=== PATIENT | male | born 1975 | race Caucasian/White ===

== ENCOUNTER 2018-08-17 14:02 | Emergency (ER) | payer OTHER ==
[~2018-08-17] VITALS: Ht 170.2 cm; Wt 87.3 kg
--- NOTE | 2018-08-17 14:30 | NUR ---
PT TO ROOM FROM LOBBY AT TIS TIME.
[2018-08-17] MEDS ORDERED: ONDANSETRON 2MG/ML, 2ML IVPush ONE (15:00)
[2018-08-17] MEDS ORDERED: MORPHINE SULFATE 4 MG/ML, 1ML IVPush PRN (15:00)
[2018-08-17] MEDS ORDERED: ONDANSETRON 2MG/ML, 2ML ONE (15:03)
[2018-08-17] MEDS ORDERED: MORPHINE SULFATE 4 MG/ML, 1ML ONE (15:03)
--- NOTE | 2018-08-17 15:10 | NUR ---
US TO THE BS MEDS GIVEN PER ORDERS FAMILY AT THE BS
[2018-08-17 15:13] LABS: BASOPHILS # (AUTO) 0.04 x10^3/uL (0-0.1); BASOPHILS % (AUTO) 1 % (0-1); EOSINOPHILS # (AUTO) 0.05 x10^3/uL (0-0.4); EOSINOPHILS % (AUTO) 1 % (1-7); LYMPHOCYTES # (AUTO) 1.59 x10^3/uL (1-3.4); LYMPHOCYTES % (AUTO) 18 % (22-44); MD NO; MEAN CORPUSCULAR HEMOGLOBIN 29.6 pg (27.5-34.5); MEAN CORPUSCULAR HGB CONC 33.6 g/dL (33.2-36.2); MEAN CORPUSCULAR VOLUME 88.2 fL (81-97); MEAN PLATELET VOLUME 9.7 fL (7.4-10.4); MONOCYTES # (AUTO) 0.72 x10^3/uL (0.2-0.8); MONOCYTES % (AUTO) 8 % (2-9); NEUTROPHILS # (AUTO) 6.54 x10^3/uL (1.8-6.8); NEUTROPHILS % (AUTO) 73 % (42-75); PLATELET COUNT 229 x10^3/uL (130-400); RED BLOOD COUNT 5.11 x10^6/uL (4.38-5.82); RED CELL DISTRIBUTION WIDTH 14.7 % (9.4-14.8)
[2018-08-17 15:20] LABS: ALANINE AMINOTRANSFERASE 59 U/L (12-78); ALBUMIN 3.8 g/dL (3.4-5.0); ANION GAP 5 mmol/L (5-15); CALCIUM 9.2 mg/dL (8.5-10.1); CHLORIDE 108 mmol/L (98-107)
[2018-08-17 15:23] LABS: ALKALINE PHOSPHATASE 89 U/L (45-117); BILIRUBIN,TOTAL 0.3 mg/dL (0.2-1.0); TOTAL PROTEIN 7.2 g/dL (6.4-8.2)
--- NOTE | 2018-08-17 15:43 | NUR ---
PT. STATES RELIEF FROM PAIN MEDICATIONS. PT. IS RESTING WITH THE BP CUFF AND THE PULSE OX IN PLACE. VSS.
--- NOTE | 2018-08-17 16:49 | NUR ---
PT. WAS GIVEN DISCHARGE INSTRUCTIONS AND SCRIPTS WITH UNDERSTANDING VERBALIZED ALONG WITH WILLINGNESS TO COMPLY. PT.'S IV WAS DCD', CATH TIP INTACT. PRESSURE HELD WITH HEMOSTASIS ACHIEVED. PT. WAS AMBULATORY TO THE DISCHARGE DESK. PT. WAS INSTRUCTED TO NOT DRIVE WHILE TAKING NORCO OR ANY NARCOTIC PAIN MEDS.
[2018-08-17 16:52] VITALS: BP 115/72
== END 2018-08-17 16:55 | disposition home or self-care (01) ==
LOC: ED 16:30
DX: K80.20 Calculus of gallbladder without cholecystitis without obstruction (principal)
CPT/HCPCS: 36415; 76700; 80053; 83690; 85025; 96374; 96375; 99284; J2405

== ENCOUNTER 2019-07-17 19:16 | Observation (INO) | payer OTHER ==
[~2019-07-17] VITALS: Ht 170.2 cm; Wt 98.0 kg
[2019-07-17 23:15] LABS: BASOPHILS # (AUTO) 0.03 x10^3/uL (0-0.1); BASOPHILS % (AUTO) 0 % (0-1); EOSINOPHILS # (AUTO) 0.39 x10^3/uL (0-0.4); EOSINOPHILS % (AUTO) 4 % (1-7); LYMPHOCYTES # (AUTO) 2.19 x10^3/uL (1-3.4); LYMPHOCYTES % (AUTO) 21 % (22-44); MD NO; MEAN CORPUSCULAR HEMOGLOBIN 30.4 pg (27.5-34.5); MEAN CORPUSCULAR HGB CONC 33.8 g/dL (33.2-36.2); MEAN PLATELET VOLUME 8.3 fL (7.4-10.4); MONOCYTES # (AUTO) 0.98 x10^3/uL (0.2-0.8); MONOCYTES % (AUTO) 9 % (2-9); NEUTROPHILS # (AUTO) 6.86 x10^3/uL (1.8-6.8); NEUTROPHILS % (AUTO) 66 % (42-75); PLATELET COUNT 289 x10^3/uL (130-400); RED BLOOD COUNT 4.41 x10^6/uL (4.38-5.82); RED CELL DISTRIBUTION WIDTH 13.8 % (9.4-14.8)
[2019-07-17 23:25] LABS: ALANINE AMINOTRANSFERASE 153 U/L (12-78); ALBUMIN 3.1 g/dL (3.4-5.0); ANION GAP 5 mmol/L (5-15); CALCIUM 9.2 mg/dL (8.5-10.1); CHLORIDE 103 mmol/L (98-107)
[2019-07-17 23:28] LABS: ALKALINE PHOSPHATASE 109 U/L (45-117); BILIRUBIN,TOTAL 0.5 mg/dL (0.2-1.0); CREATININE 1.03 mg/dL (0.7-1.3); TOTAL PROTEIN 8.1 g/dL (6.4-8.2)
[2019-07-18] MEDS ORDERED: SODIUM CHLORIDE 0.9% 1,000 ML IV ONE (00:20)
--- NOTE | 2019-07-18 00:20 | NUR ---
pt to room from lobby
[2019-07-18] MEDS ORDERED: BUPIVACAINE/PF 0.5% ONE (00:26)
[2019-07-18] MEDS ORDERED: EPINEPHRINE 1 MG/ML, 1ML ONE (00:26)
[2019-07-18 00:28] LABS: MICROSCOPIC NOT IND
[2019-07-18] MEDS ORDERED: MORPHINE SULFATE 4 MG/ML, 1ML ONE (00:28)
[2019-07-18] MEDS ORDERED: CEFOTETAN PMX 1GM/50ML 50 ML ONE (00:28)
[2019-07-18] MEDS ORDERED: ONDANSETRON 2MG/ML, 2ML ONE ×2 (00:28→06:44)
[2019-07-18] MEDS ORDERED: CEFOTETAN PMX 1GM/50ML 50 ML IV ONE (00:30)
[2019-07-18] MEDS ORDERED: MORPHINE SULFATE 4 MG/ML, 1ML IVPush PRN (00:30)
[2019-07-18] MEDS ORDERED: ONDANSETRON 2MG/ML, 2ML IVPush PRN (00:30)
[2019-07-18 00:33] LABS: CULTURE INDICATED? NO
[2019-07-18 01:31] VITALS: BP 134/83
[2019-07-18 02:55] VITALS: BP 139/87
[2019-07-18] MEDS ORDERED: BUPIVACAINE/PF-EPI 0.5% 1:200K IM ONE (04:42)
[2019-07-18] MEDS ORDERED: FENTANYL PF 250 MCG/5ML ONE (05:49)
[2019-07-18] MEDS ORDERED: KETOROLAC 30 MG/1 ML ONE (05:49)
[2019-07-18] MEDS ORDERED: LIDOCAINE PF 2%, 5ML ONE (05:49)
[2019-07-18] MEDS ORDERED: CEFOTETAN PMX 2GM/50ML 50 ML ONE (05:57)
[2019-07-18] MEDS ORDERED: PROPOFOL 10 MG/ML, 20ML ONE (06:44)
[2019-07-18] MEDS ORDERED: SUGAMMADEX 200 MG/2 ML IVPush ONE (06:44)
[2019-07-18] MEDS ORDERED: DEXAMETHASONE 4 MG/ML, 1ML ONE (06:44)
[2019-07-18] MEDS ORDERED: ROCURONIUM 10MG/ML,5ML ONE (06:44)
[2019-07-18] MEDS ORDERED: SUCCINYLCHOLINE 20 MG/ML, 10ML ONE (06:44)
[2019-07-18] MEDS ORDERED: FENTANYL PF 100 MCG/2ML IV PRN (07:30)
[2019-07-18] MEDS ORDERED: MEPERIDINE/PF 25MG/ML,1ML IVPush PRN (07:30)
[2019-07-18] MEDS ORDERED: HYDROmorphone 2 MG/ML, 1ML IVPush PRN (07:30)
[2019-07-18] MEDS ORDERED: OXYcodone 5 MG/5 ML ORAL.SOL UDC PO PRN (07:30)
[2019-07-18] MEDS ORDERED: ACETAMINOPHEN 325 MG TABLET PO PRN (07:30)
[2019-07-18] MEDS ORDERED: PROMETHAZINE 25 MG/ML, 1ML IV PRN (07:30)
[2019-07-18] MEDS ORDERED: MIDAZOLAM 1 MG/ML, 2ML IV PRN (07:30)
[2019-07-18 08:25] VITALS: BP 145/85
[2019-07-18] MEDS ORDERED: HYDROmorphone 1 MG/ML, 1ML INJ IV PRN (09:00)
[2019-07-18] MEDS ORDERED: ONDANSETRON ODT 4 MG PO PRN (09:00)
[2019-07-18] MEDS ORDERED: LACTATED RINGERS 1,000 ML IV SCH (09:00)
[2019-07-18] MEDS ORDERED: HYDR-3240 PO (09:20)
[2019-07-18] MEDS ORDERED: AMOX1TAB61 PO (09:27)
[2019-07-18 13:02] VITALS: BP 122/76
[2019-07-18] MEDS: AMOXICILLIN/CLAV 500-125MG TABLET PO SCH ×2 (16:00→16:19)
[2019-07-18] MEDS: HYDROcodone/APAP 5/325 TABLET PO PRN ×2 (16:20→17:54)
[2019-07-18 17:51] VITALS: BP 116/71
== END 2019-07-18 18:50 | disposition home or self-care (01) ==
LOC: ED 22:06 → INTOOBSV 07-18 00:20 → EDIP 07-18 00:20 → 4NE 07-18 00:58
PROVIDERS: ADMIT Surgery; ATTEND Surgery
DX: K80.00 Calculus of gallbladder with acute cholecystitis without obstruction (principal); E66.9 Obesity, unspecified; Z79.899 Other long term (current) drug therapy
CPT/HCPCS: 36415; 47562; 76700; 80053; 81003; 83690; 85025; 88304; 96361; 96365; 96375; 99284; G0378; J0171; J0330; J1100; J1885; J2270; J2405; J2704; J3010; J3490; J7030; J7120; Q0162; S0020